=== PATIENT | female | born 1995 | race Caucasian/White ===

== ENCOUNTER 2019-01-29 08:18 | Emergency (ER) | payer OTHER ==
[~2019-01-29] VITALS: Ht 167.6 cm; Wt 75.0 kg
[2019-01-29 08:25] VITALS: BP 103/73; TEMP 97.3
[2019-01-29] MEDS ORDERED: BACTRIM DS 8001 TAB PO (08:25)
[2019-01-29 09:19] LABS: COLLECTION METHOD CLEAN CATCH
[2019-01-29] MEDS ORDERED: TRIAMCINOLONE A15 G3 TP (09:25)
[2019-01-29 09:43] LABS: MUCOUS Present /lpf; PH 5 (5-8); URINE APPEARANCE Hazy; URINE BACTERIA Rare /hpf; URINE BILIRUBIN Negative (NEGATIVE); URINE BLOOD Negative (NEGATIVE); URINE COLOR Yellow; URINE GLUCOSE Negative (NEGATIVE); URINE KETONE Negative (NEGATIVE); URINE LEUKOCYTE ESTERASE Negative (NEGATIVE); URINE NITRATE Negative (NEGATIVE); URINE PROTEIN(semi-quant) Negative (NEGATIVE); URINE RBC 0-2 /hpf; URINE UROBILINOGEN Negative (NEGATIVE)
[2019-01-29] MEDS ORDERED: MEDROL 4MG DOSPA4 MG PO (09:53)
[2019-01-29 09:59] VITALS: PULSE 96
== END 2019-01-29 10:00 | disposition home or self-care (01) ==
LOC: COL.ER 08:18
PROVIDERS: Physician Assistant
DX: T37.0X5A Adverse effect of sulfonamides, initial encounter (principal); R21 Rash and other nonspecific skin eruption
CPT/HCPCS: J1200